=== PATIENT | female | born 1955 | race Caucasian/White ===

== ENCOUNTER 2023-07-30 08:15 | Outpatient (RCR) | payer MEDICARE, BC, SELFPAY | END 2023-11-27 23:59 | disposition home or self-care (01) | PROVIDERS: PCP Nurse Practitioner Family; Visit Provider Family Medicine | DX: M19.019 Primary osteoarthritis, unspecified shoulder (principal); Z51.89 Encounter for other specified aftercare | CPT/HCPCS: 97110; 97140; 97162 ==